=== PATIENT | female | born 1955 | race Caucasian/White ===

== ENCOUNTER 2024-03-08 22:11 | Emergency (ER) | payer MEDICARE, OTHER, SELFPAY ==
[2024-03-08 22:21] VITALS: BP 178/68; PULSE 86; RESP 14; TEMP 36.6; O2SAT 100
--- NOTE | 2024-03-08 22:50 | XRR_ITS ---
PROCEDURE INFORMATION: Exam: XR Right Wrist Exam date and time: 03/08/2024 10:52 PM Age: 68 years old Clinical indication: Pain; Wrist; Right; Additional info: Fall/deformity, tripped and tried to catch herself, pain and deformity of RT wrist TECHNIQUE: Imaging protocol: Radiologic exam of the right wrist. Views: 3 or more views. COMPARISON: No relevant prior studies available. FINDINGS: Bones/joints: There is a transverse and dorsally impacted fracture of the distal radial epiphysis. Soft tissues: Soft tissue swelling XR/XR wrist RT min 3V* [id number] IMPRESSION: There is a transverse and dorsally impacted fracture of the distal radial epiphysis.
[2024-03-08] MEDS: HYDROcodone-acetaminophen 7.5-325 mg Tablet 1 TAB PO (23:17)
--- NOTE | 2024-03-08 23:23 | ED_ITS ---
HPI - Extremity Problem General: Chief complaint: Extremity Injury, Upper Stated complaint: right arm/wrist injury Time Seen by Provider: 03/08/24 22:13 Source: patient Mode of arrival: ambulatory Limitations: no limitations History of Present Illness: Patient is a 68-year-old female who presents to the emergency department for evaluation of her right arm pain that happened prior to arrival. Patient was at a horse showing and states she was tending to a horse, and tripped over a stirrup causing her to land awkwardly onto her right forearm directly. She arrives with mild deformity noted to the right wrist, and is clutching it in pain. She states she is having difficulty moving her hand, though denies any distal sensory changes. She has no prior surgical or fracture history of that wrist. She denies any elbow pain, digit pain, or other symptoms at this time. She has not taken anything for pain at this time. This injury occurred approximately 3-4 hours prior to arrival. There is no proximal or distal extension of the pain, she states currently it is aching. MD Complaint: extremity pain (Right forearm) Onset (ago): hour(s) Pain Consistency: constant Location: right Quality: aching Radiation: none Relieving factors: nothing Exacerbating factors: range of motion Associated symptoms: Reports no associated symptoms; Deny chest pain, fever(s) or rash Review of Systems General: Reports: 10 or more systems reviewed and unremarkable except in HPI and below Const: Denies: fever(s), chills or fatigue Eyes: Denies: change in vision ENMT: Denies: throat pain, ear or mastoid pain or nasal discharge Card: Denies: chest pain, palpitations, swelling of feet/ankles or lightheadedness Resp: Denies: dyspnea, productive cough or wheezing GI: Denies: abdominal pain, nausea, vomiting, diarrhea or constipation : Denies: flank pain, difficulty voiding, dysuria or urinary frequency Musc: Reports: extremity pain (Plus deformity); Denies: neck pain, back pain or joint pain Skin/Breast: Denies: rash Neuro: Denies: headache(s), numbness in extremities or weakness in extremities Physical Exam Const: COMMON NORMALS: average body habitus, patient oriented x3, no limitations, healthy appearing and alert GENERAL APPEARANCE: cooperative ORIENTATION/CONSCIOUSNESS: Yes awake OTHER: Clutching right arm at bedside HENMT: COMMON NORMALS: normocephalic and atraumatic HEAD & SCALP: normocephalic and atraumatic Eye: COMMON NORMALS: EOMs intact bilaterally and conjunctivae normal CONJUNCTIVA: Yes conjunctivae normal Neck/C-Spine: COMMON NORMALS: full ROM Resp: COMMON NORMALS: No use of accessory muscles and clear to auscultation bilaterally AUSCULTATION: clear to auscultation bilaterally Cardio: COMMON NORMALS: regular rate and regular rhythm RATE: regular rate RHYTHM: regular rhythm Extremity: NARRATIVE EXTREMITY EXAM: Deformity noted to the right distal forearm. This area is tender to palpation, worse on the volar aspect. She has full and symmetrical pulses. Distal neurovascular exam is intact. No pain or other concerning findings in the hand or elbow. No bruising or other signs of trauma noted. Neuro: COMMON NORMALS: patient oriented x3, moves all extremities, no focal motor deficits and no sensory deficits noted SENSORIUM/ORIENTATION: Yes alert Skin: COMMON NORMALS: no rashes or lesions noted GENERAL SKIN EXAM: no rashes or lesions noted Course Vital Signs: Vital signs: Vital Signs Temperature 98 F 03/08/24 22:21 Pulse Rate 86 03/08/24 22:21 Respiratory Rate 14 03/08/24 22:21 Blood Pressure 178/68 03/08/24 22:21 Pulse Oximetry 100 03/08/24 22:21 MDM - Extremity (Nontraumatic) Medical Decision Making Patient presented to the emergency department for evaluation of right arm injury few hours prior to arrival. Arrives with a deformity to the right arm, and her distal neurovascular exam was intact. She had good pulses that were symmetrical bilaterally. X-ray did demonstrate signs of a distal radius fracture that was impacted mildly dorsally angulated. Due to her intact vascular status and her not being from around here, will place in a sugar-tong splint and have her follow-up with her orthopedist back home. We will control her pain with hydrocodone, and she is to present to the ED with any new or concerning signs. Lab Data Radiology Impressions Wrist X-Ray 03/08/24 22:50 IMPRESSION: There is a transverse and dorsally impacted fracture of the distal radial epiphysis. All radiology interpretation(s) finalized by discharge Discharge Plan Discharge Patient Disposition: Home Clinical Impression: Distal radial fracture Qualifiers: Encounter type: initial encounter Fracture type: closed Fracture morphology: unspecified fracture morphology Laterality: right Qualified Code(s): S52.501A - Unspecified fracture of the lower end of right radius, initial encounter for closed fracture Condition: Stable Prescriptions: New hydrocodone-acetaminophen 5-325 mg tablet 1 tab PO Q6H PRN (Reason: pain) Qty: 20 0RF Discharge Orders: Discharge ED (Routine); Ordered 03/08/24 Ordered By: Jean Li Discharge Diet: Usual diet Discharge Activity: Limit activity as instructed Patient Instructions: Opioid Safety, Pain Management Activity Restrictions/Additional Instructions: Keep splint on until follow-up with orthopedics back home. Please follow-up with orthopedics/primary care early next week. Pain medications as needed. If you develop any new or concerning symptoms, report to the nearest emergency department. Coding Level of Care Code ED Watchmaking Teacher for Norma Suarez
[2024-03-09] MEDS: HYDROcodone-acetaminophen 7.5-325 mg Tablet 1 TAB PO (00:20)
[2024-03-09 00:28] VITALS: BP 169/71; PULSE 80; RESP 18; O2SAT 99
== END 2024-03-09 00:30 | disposition home or self-care (01) ==
PROVIDERS: Emergency Provider Physician Assistant
DX: S52.591A Other fractures of lower end of right radius, initial encounter for closed fracture (principal); W01.0XXA Fall on same level from slipping, tripping and stumbling without subsequent striking against object, initial encounter
CPT/HCPCS: 29125; 73110; 99283